=== PATIENT | male | born 1980 | race Caucasian/White ===

== ENCOUNTER 2019-01-16 15:53 | Emergency (ER) | payer OTHER ==
[~2019-01-16] VITALS: Ht 185.4 cm; Wt 90.7 kg
[~2019-01-16 15:53] MED LIST: CLIN300 PO; HYDACE5 PO
[2019-01-16] MEDS ORDERED: Monodox100 MG PO (17:33)
== END 2019-01-16 17:36 | disposition home or self-care (01) ==
LOC: ER 15:53
DX: L03.211 Cellulitis of face (principal)
CPT/HCPCS: 99283

== ENCOUNTER 2019-01-19 00:02 | Day surgery (SDC) | payer SELFPAY ==
[~2019-01-19 00:02] MED LIST changes: +Monodox100 MG PO
--- NOTE | 2019-01-19 09:03 | NUR ---
WOUND ON R CHEEK IS DRAINING SEROUS FLUID WHEN PRESSURE APPLIED. GAVE PT STERILE GAUZE TO USE TO CATCH DRAINAGE.
== END 2019-01-19 08:49 | disposition home or self-care (01) ==
LOC: ATC 00:02
DX: L03.211 Cellulitis of face (principal); M60.9 Myositis, unspecified; F17.200 Nicotine dependence, unspecified, uncomplicated
CPT/HCPCS: 96365; J0878

== ENCOUNTER 2019-01-21 00:42 | Day surgery (SDC) | payer OTHER | END 2019-01-21 22:51 | disposition home or self-care (01) | LOC: ATC 00:42 | DX: L03.211 Cellulitis of face (principal); M60.9 Myositis, unspecified; F17.200 Nicotine dependence, unspecified, uncomplicated | CPT/HCPCS: J0878 ==

== ENCOUNTER 2019-03-28 14:49 | Inpatient (IN) | payer OTHER ==
[~2019-03-28] VITALS: Ht 185.4 cm; Wt 86.8 kg
[2019-03-28 15:41] LABS: BASOPHILS ABSOLUTE AUTO 0.05 K/mm3 (0.00-0.23); BASOPHILS PERCENT AUTO 0 % (0-2); EOSINOPHILS ABSOLUTE AUTO 0.08 K/mm3 (0.00-0.68); EOSINOPHILS PERCENT AUTO 1 % (0-6); Hematocrit 41.2 % (37.0-53.0); Hemoglobin 13.9 g/dL (13.5-17.5); IMMATURE GRAN ABSOLUTE AUTO 0.08 K/mm3 (0.00-0.10); IMMATURE GRAN PERCENT AUTO 1 % (0-1); LYMPHOCYTES PERCENT AUTO 4 % (21-46); MONOCYTES ABSOLUTE AUTO 0.81 K/mm3 (0.16-1.47); MONOCYTES PERCENT AUTO 5 % (4-13); Mean Corpuscular HGB 31.5 pg (26.0-34.0); Mean Corpuscular HGB Conc 33.7 g/dL (31.5-36.5); Mean Corpuscular Volume 93 fL (80-100); Mean Platelet Volume 10.6 fL (9.1-12.4); NEUTROPHILS ABSOLUTE AUTO 14.26 K/mm3 (1.96-9.15); NEUTROPHILS PERCENT AUTO 89 % (41-73); Platelet Count 159 K/mm3 (150-400); RDW Coefficient Variation 12.6 % (11.7-14.2); RDW Standard Deviation 43.2 fL (35.1-46.3); Red Blood Cell Count 4.41 M/mm3 (4.30-5.90); White Blood Cell Count 15.98 K/mm3 (4.00-11.30)
[2019-03-28 15:57] LABS: Alanine Aminotransfer (ALT/SGP 28 U/L (12-78); Albumin, Blood 3.3 g/dL (3.4-5.0); Albumin/Globulin Ratio 0.8 (0.8-1.8); Alk Phos 73 U/L (50-136); Anion Gap 7 mmol/L (6-16); Aspartate Aminotrans (AST/SGOT 24 U/L (12-37); Bilirubin, Total 0.8 mg/dL (0.1-1.0); Blood Urea Nitrogen 9 mg/dL (8-24); Bun/Creatinine Ratio 8.5 (12.0-20.0); CO2, Blood 25 mmol/L (21-32); Calcium, Blood 8.7 mg/dL (8.5-10.1); Chloride, Blood 105 mmol/L (98-108); Creatinine, Blood 1.06 mg/dL (0.60-1.20); Globulin, Blood 3.9 g/dL (2.2-4.0); Glomerular Filtration Rate >60 (60-); Glucose, Blood 132 mg/dL (70-99); Potassium, Blood 3.7 mmol/L (3.5-5.5); Sodium, Blood 137 mmol/L (136-145); Total Protein, Blood 7.2 g/dL (6.4-8.2)
--- NOTE | 2019-03-28 22:32 | NUR ---
PT REQUESTING TO BE WHEELED OUT BY NEPHEW TO GO OUTSIDE TO HAVE A SMOKE. EXPLAINED TO PT THAT I CANNOT KEEP HIM HERE AND RECOMMENDED NOT GOING OUTSIDE TO SMOKE. PT DECIDED THAT HE WANTED TO GO OUT. NEPHEW WHEELED PT OUTSIDE, PT STATED THAT HE WOULD ONLY BE GONE 10-20 MINUTES.
[2019-03-29 03:41] LABS: Source, Urine Clean Catch
[2019-03-29 03:44] LABS: Bilirubin, Urine Neg (Neg); Blood, Urine 5+ (Neg); Glucose Qualitative, Urine Neg (Neg); Ketones, Urine Neg (Neg); Leukocyte Esterase, Urine 1+ (Neg); Nitrite, Urine Neg (Neg); Protein, Urine 2+ (Neg); Specific Gravity, Urine 1.015 (1.003-1.022); Urobilinogen, Urine 2+ (Normal); pH, Urine 6.5 (5.0-8.0)
[2019-03-29 03:50] LABS: Color, Urine Amber (P-Yellow)
[2019-03-29 03:51] LABS: Appearance, Urine Hazy (Clear); Bacteria Rare /hpf; Squamous Epithelial Cells Not Seen /hpf (Few)
[2019-03-29 03:52] LABS: Amorphous Mod (0-Heavy)
[2019-03-29 03:58] LABS: U Amphetamine Screen DETECTED; U Barbituate Screen Not Detected; U Benzodiazapine Screen Not Detected; U Buprenorphine Screen Not Detected; U Cannabinoids Screen DETECTED; U Cocaine Screen Not Detected; U Methadone Screen Not Detected; U Methamphetamine Screen DETECTED; U Opiates Screen Not Detected; U Oxycodone Screen Not Detected; U Phencyclidine Screen Not Detected; U Propoxyphene Screen Not Detected
[2019-03-29 05:34] LABS: BASOPHILS ABSOLUTE AUTO 0.02 K/mm3 (0.00-0.23); BASOPHILS PERCENT AUTO 0 % (0-2); EOSINOPHILS ABSOLUTE AUTO 0.15 K/mm3 (0.00-0.68); EOSINOPHILS PERCENT AUTO 1 % (0-6); Hematocrit 37.1 % (37.0-53.0); Hemoglobin 12.4 g/dL (13.5-17.5); IMMATURE GRAN PERCENT AUTO 1 % (0-1); LYMPHOCYTES ABSOLUTE AUTO 0.96 K/mm3 (0.84-5.20); LYMPHOCYTES PERCENT AUTO 8 % (21-46); MONOCYTES ABSOLUTE AUTO 1.05 K/mm3 (0.16-1.47); MONOCYTES PERCENT AUTO 8 % (4-13); Mean Corpuscular HGB 31.8 pg (26.0-34.0); Mean Corpuscular HGB Conc 33.4 g/dL (31.5-36.5); Mean Corpuscular Volume 95 fL (80-100); Mean Platelet Volume 10.2 fL (9.1-12.4); NEUTROPHILS ABSOLUTE AUTO 10.57 K/mm3 (1.96-9.15); NEUTROPHILS PERCENT AUTO 82 % (41-73); Platelet Count 144 K/mm3 (150-400); RDW Coefficient Variation 12.9 % (11.7-14.2); RDW Standard Deviation 45.1 fL (35.1-46.3); White Blood Cell Count 12.85 K/mm3 (4.00-11.30)
[2019-03-29 05:47] LABS: Anion Gap 3 mmol/L (6-16); Blood Urea Nitrogen 11 mg/dL (8-24); CO2, Blood 29 mmol/L (21-32); Calcium, Blood 8.1 mg/dL (8.5-10.1); Chloride, Blood 108 mmol/L (98-108); Glomerular Filtration Rate >60 (60-); Glucose, Blood 118 mg/dL (70-99); Potassium, Blood 3.9 mmol/L (3.5-5.5); Sodium, Blood 140 mmol/L (136-145)
--- NOTE | 2019-03-29 05:57 | NUR ---
SHIFT SUMMARY PT NEW ED ADMIT THIS EVENING. ALERT AND ORIENTED. INDEPENDENT IN THE ROOM. SCROTUM RED AND SWOLLEN WITH A SMALL ABRASION. PICTURES TAKEN AND PLACED IN CHART. WOUND FROM CHAIN SAW ALSO ON LEFT KNEE THAT SUTURES WERE PLACED IN ED 03/23/19. PICTURES ALSO PLACED IN CHART. PT WHEELED OUTSIDE BY FAMILY X 1 TO SMOKE. PT SHORTLY AFTER FELL ASLEEP AND SLEPT THROUGH MUCH OF THE NIGHT. MEDICATED X 1 FOR PAIN W/ ULTRAM 50 MG. PT ALSO FEBRILE TONIGHT AT 101.2. MEDICATED WITH 650 MG TYLENOL. FEVER IMPROVED. PT OPENLY ADMITS THAT HE USES MARIJUANA AND METH DAILY AT HOME. AFTER FEVER REDUCED VITAL SIGNS STABLE.
--- NOTE | 2019-03-29 17:04 | NUR ---
SUMMARY PT RESTING QUIETLY IN BED, PT HAS BEEN COOPERATIVE WITH CARE T/O THE DAY, PT MED PER EMAR FOR HEADACHE, PT HAD A VISITOR IN EARLIER, PT HAS WENT OUTSIDE WITH THE VISITOR, NO COMPLAINTS, VSS, NO ACUTE CHANGES, WILL CONT TO MONITOR
--- NOTE | 2019-03-29 23:54 | NUR ---
PT SLEPT FOR FIRST PART OF SHIFT. WOKE JUST A SHORT WHILE AGO AND REQUESTED TO GO OUTSIDE. PT AMUBLATED INDEPENDENTLY OUTSIDE.
--- NOTE | 2019-03-30 03:45 | NUR ---
SHIFT SUMMARY PT HAD UNEVENTFUL NIGHT. SLEPT THROUGH MOST OF THE NIGHT. WENT OUTSIDE ONCE VERY BRIEFLY. VITAL SIGNS STABLE. AFEBRILE. PT REPORTED HEADACHE AT START OF SHIFT BUT SOON AFTER FEEL ASLEEP AND HASN'T HAD ANY COMPLAINTS SINCE. SCROTUM REMAINS RED AND SLIGHTLY SWOLLEN. NO WORSENING OR IMPROVEMENT NOTED. SMALL AMOUNT OF PUS COMING OUT A SMALL WOUND ON SCROTUM. PT STATES THAT A LARGE AMOUNT OF YELLOW AND WHITE PUS HAS BEEN COMING OUT OF THE WOUND, MAINLY WHEN HE SHOWERS. PT CONCERNED THAT THE WOUND NEEDS TO BE "EMPTIED". EXPLAINED TO PT WHAT SCROTAL ULTRASOUND SHOWED. PT NOT CONVINCED. OTHERWISE, NO ACUTE CHANGES. WILL CONTINUE TO MONITOR.
--- NOTE | 2019-03-30 08:19 | NUR ---
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
--- NOTE | 2019-03-30 10:12 | NUR ---
DR ROSADO HAS BEEN IN TO SEE THE PT, FAMILY IS NOW IN VISITING, PT DEBATING ON WHETHER HE WANTS TO LEAVE AMA OR STAY FOR ONE MORE NIGHT
--- NOTE | 2019-03-30 10:39 | NUR ---
SUMMARY/DISCHARGE PT LEFT AMA, DR ROSADO NOTIFIED, SHE DID WRITE HIM A SCRIPT FOR ANTIBIOTICS, PT'S SPOUSE DID TRY TO CONVINCE HIM TO STAY, PT EDUCATED ABOUT THE RISKS AND BENEFITS OF STAYING VS, LEAVING, PT DECIDED TO LEAVE ANYWAYS, ABLE TO AMBULATE SAFELY TO THE ELEVATOR WITH HIS SPOUSE
[2019-03-30 19:05] LABS: CHLAMYDIA TRACHOMATIS, NAA Positive (Negative); NEISSERIA GONORRHOEAE, NAA Negative (Negative)
== END 2019-03-30 10:45 | disposition left against medical advice (07) | DRG 872 ==
LOC: ER 14:49 → MEDS 19:06 → ENPENDDIS 03-30 10:26 → MEDS 03-30 10:45
PROVIDERS: Nurse Practitioner Acute Care; Physician Assistant; ADMIT Hospitalist
DX: A41.02 Sepsis due to Methicillin resistant Staphylococcus aureus (principal); R65.20 Severe sepsis without septic shock; N49.2 Inflammatory disorders of scrotum; S81.012A Laceration without foreign body, left knee, initial encounter; F17.210 Nicotine dependence, cigarettes, uncomplicated; F19.10 Other psychoactive substance abuse, uncomplicated
CPT/HCPCS: 36415; 76870; 80048; 80053; 80202; 81001; 83605; 85025; 87040; 87070; 87077; 87086; 87186; 87205; 87491; 87591; 96365; 96366; 96367; 99284-25; A9270; J0696; J2543; J3370; J7030; J7050

== ENCOUNTER 2023-02-01 08:17 | Emergency (ER) | payer OTHER ==
[~2023-02-01] VITALS: Ht 172.7 cm; Wt 61.7 kg
[2023-02-01] MEDS ORDERED: NARCAN4 M1 (10:07)
[2023-02-01] MEDS ORDERED: ONDA4ODT MM (10:15)
[2023-02-01 11:11] VITALS: BP 125/92
== END 2023-02-01 11:31 | disposition home or self-care (01) ==
LOC: ER 08:17
DX: F11.90 Opioid use, unspecified, uncomplicated (principal); F17.210 Nicotine dependence, cigarettes, uncomplicated
CPT/HCPCS: 99283